=== PATIENT | male | born 1980 | race Hispanic/Latino ===

== ENCOUNTER 2018-08-12 16:20 | Emergency (ER) | payer SELFPAY ==
[~2018-08-12] VITALS: Ht 165.1 cm; Wt 63.5 kg
[2018-08-12] MEDS ORDERED: ACETAMINOPHEN 325 MG TAB PO ONE (17:00)
--- NOTE | 2018-08-12 17:05 | NUR ---
PATIENT ASKING FOR DINNER. TOLD HIM WE NEED TO MAKE SURE HIS CT HEAD IS NORMAL THEN WE CAN GET HIM A SANDWICH. PATIENT STATED, "I AM NOT WAITING AROUND FOR ANY RUSULTS" PATIENT GOT OUT OF BED ON HIS OWN AND PUT ON HIS SHIRT, PANTS AND SHOES AND WANTS LEAVE.
--- NOTE | 2018-08-12 17:10 | NUR ---
PATIENT REFUSED TO SIGN DISCHARGE PAPERWORK. AMBULATORY OUT OF DEPARTMENT.
--- NOTE | 2018-08-12 17:14 | NUR ---
DR. RITCHIE AND BERTIN DATA SME AWARE PATIENT IS LEAVING WITHOUT SIGNING PAPERS. HE IS ALERT AND ORIENTED X 3. PATIENT NO LONGER CRYING WHEN ASKED QUESTIONS
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
== END 2018-08-12 17:31 | disposition home or self-care (01) ==
LOC: ER 16:20
DX: S00.83XA Contusion of other part of head, initial encounter (principal); Y04.0XXA Assault by unarmed brawl or fight, initial encounter; Y92.008 Other place in unspecified non-institutional (private) residence as the place of occurrence of the external cause
CPT/HCPCS: 70450; 99283